=== PATIENT | male | born 1975 | race Caucasian/White ===

== ENCOUNTER 2023-06-13 13:37 | Emergency (ER) | payer OTHER, SELFPAY ==
[2023-06-13 13:44] VITALS: BP 140/96; PULSE 73; RESP 16; TEMP 36.8; O2SAT 95; BMI 42.0
--- NOTE | 2023-06-13 13:45 | ED.ABDPAIN1 ---
HPI - Abdominal Pain General Chief Complaint: Abdominal Pain Stated Complaint: ABDOMINAL PAIN Time Seen by Provider: 06/13/23 13:44 History of Present Illness HPI narrative: this patient's here for evaluation of abdominal pain. In fact at this time he does not have any abdominal discomfort but he did the day before yesterday in the morning. After waking up with the severe pain he went and saw his primary care doctor subsequently had a gallbladder ultrasound. Currently he received a phone call from the facility indicating that he should go to the emergency room for further evaluation. At no time has he had a fever. He is not vomiting today. And actually is a said his pain is gone. He is afebrile here. He has not had previous surgery or problems with his gallbladder that he is aware of. The pain is not in the lower abdominal area. Is not on any antibiotics. Related Data Allergies Allergy/AdvReac Type Severity Reaction Status Date / Time No Known Drug Allergies Allergy Verified 06/13/23 13:47 PFSH PFSH Social History Smoking status: Former smoker Exam Narrative Exam Narrative: on examination is a pleasant well-hydrated well-nourished gentleman he does weigh 140 kg. Overall he does not appear ill. He actually denies any discomfort at this time His vital signs are stable and he is afebrile. He is not on any antibiotics or fever reducing medication. Problem focused examination shows no evidence of scleral icterus or anemia. His abdominal area shows no rebound rigidity or peritoneal findings. He has no tenderness at McBurney's point and actually at this time or for sign is not positive. Skin integument are otherwise normal with no leg edema. Heart rate and rhythm are normal. Constitutional Vital Signs, click to edit/add: Last Vital Signs Temp 98.2 F 06/13/23 13:44 Pulse 73 06/13/23 13:44 Resp 16 06/13/23 13:44 BP 140/96 H 06/13/23 13:44 Pulse Ox 95 06/13/23 13:44 O2 Del Method Room Air 06/13/23 13:44 Course Vital Signs Vital signs: Vital Signs Temperature 98.2 F 06/13/23 13:44 Pulse Rate 73 06/13/23 13:44 Respiratory Rate 16 06/13/23 13:44 Blood Pressure 140/96 H 06/13/23 13:44 Pulse Oximetry 95 06/13/23 13:44 Oxygen Delivery Method Room Air 06/13/23 13:44 Temperature 98.2 F 06/13/23 13:44 Pulse Rate 73 06/13/23 13:44 Respiratory Rate 16 06/13/23 13:44 Blood Pressure 140/96 H 06/13/23 13:44 Pulse Oximetry 95 06/13/23 13:44 Oxygen Delivery Method Room Air 06/13/23 13:44 MDM - Abdominal Pain MDM Narrative Medical decision making narrative: we did receive the ultrasound from the other facility and it was consistent with acute cholecystitis. The common bile duct was not visualized there was gallbladder wall thickening measuring [address] scan is consistent with calculus cholecystitis. His total bilirubin was normal, his white blood cell count normal. Liver function tests normal as well. The primary care physician senior process control tech will admit the patient but he would like me to discuss this with the on-call surgeon as well. Lab Data Labs: Lab Results 06/13/23 Range/Units 14:00 WBC 6.9 (4.0-11.0) 10^3/uL RBC 5.06 (4.70-6.10) 10^6/uL Hgb 14.1 (14.0-18.0) g/dL Hct 43.8 (42.0-54.0) % MCV 86.6 (80.0-94.0) fL MCH 27.9 (25.9-34.0) pg MCHC 32.2 (29.9-35.2) g/dL RDW 13.5 (11.0-15.0) % Plt Count 262 (150-450) 10^3/uL MPV 9.3 L (9.5-13.5) fL Neut % (Auto) 68.4 (43.0-75.0) % Lymph % (Auto) 22.9 (20.5-60.0) % Bill[place] % (Auto) 6.5 (1.7-12.0) % Eos % (Auto) 1.5 (0.9-7.0) % Baso % (Auto) 0.6 (0.2-2.0) % Neut # (Auto) 4.7 (1.4-6.5) 10^3/uL Lymph # (Auto) 1.6 (1.2-3.8) 10^3/uL Bill[place] # (Auto) 0.5 (0.3-0.8) 10^3/uL Eos # (Auto) 0.1 (0.0-0.7) 10^3/uL Baso # (Auto) 0.0 (0.0-0.1) 10^3/uL Abs Immat Gran (auto) 0.01 (0.00-0.03) 10^3/uL Imm/Tot Granulo (auto) 0.1 (0.0-0.5) % Sodium 134 L (136-145) mmol/L Potassium 3.6 (3.5-5.1) mmol/L Chloride 101 (98-107) mmol/L Carbon Dioxide 27.4 (21.0-32.0) mmol/L Anion Gap 9.2 BUN 10.0 (7.0-18.0) mg/dL Creatinine 0.92 (0.70-1.30) mg/dL Est GFR ( Amer) >60 (>=60) Est GFR (Non-Af Amer) >60 (>=60) BUN/Creatinine Ratio 10.9 Glucose 248 H (74-106) mg/dL Lactate 1.8 (0.4-2.0) mmol/L Calcium 8.9 (8.5-10.1) mg/dL Total Bilirubin 0.5 (0.2-1.0) mg/dL AST 21 (15-37) U/L ALT 35 (16-63) U/L Alkaline Phosphatase 98 (46-116) U/L Total Protein 7.6 (6.4-8.2) g/dL Albumin 3.3 L (3.4-5.0) g/dL Globulin 4.3 g/dL Albumin/Globulin Ratio 0.8 Lipase 29.0 (16.0-77.0) U/L Discharge Plan Discharge Chief Complaint: Abdominal Pain Clinical Impression: Acute cholecystitis Patient Disposition: Admitted as Observation Time of Disposition Decision: 14:49 Referrals: JOSEPHINE GARCIA [Primary Care Provider] - 1 week
--- NOTE | 2023-06-13 13:53 | CT_ITS ---
The [address] [address] Patient Name: TIFFANY RUSH MRN: [id number] date: 1975 Sex: M Assigned Patient Location: ER Current Patient Location: Accession/Order Number: [id number] Exam Date: 06/13/2023 14:07 Report Date: 06/13/2023 14:36 At the request of: MINESH DE LOS SANTOS Procedure: CT abdomen pelvis w con EXAM: CT scan of the abdomen and pelvis using 98 mL of IV iodinated contrast. Dose reduction technique used: Automated exposure control and/or adjustment of the mA and/or kV according to patient size and/or use of iterative reconstruction technique. REASON FOR EXAM: right upper quadrant pain COMPARISON: CT scan dated 04/07/2020 FINDINGS: Cholelithiasis. Prominent fat stranding surrounding the gallbladder. Nondilated gallbladder. Rim of hyperenhancement in the liver along the gallbladder fossa. No pericholecystic fluid collections. Diffuse hepatic steatosis. Prior anterior abdominal wall postoperative changes. Normal appendix. No free fluid in the abdomen or pelvis. No free intraperitoneal air. No dilated or thickened loops of small bowel or colon. No hydronephrosis or obstructing renal or ureteral calculi. Liver, pancreas, spleen, bilateral kidneys, and bilateral adrenal glands are otherwise unremarkable. No lymphadenopathy in the abdomen or pelvis. Remainder unremarkable. CT/CT abdomen pelvis w con IMPRESSION: 1. Findings concerning for acute calculus cholecystitis. 2. Diffuse hepatic steatosis. Electronically authenticated by: LUISA YANG Date: 06/13/2023 14:36
[2023-06-13] MEDS: 0.9 % SODIUM CHLORIDE 1,000 ML 999 ML IV (14:01)
[2023-06-13 14:19] LABS: Basophils Percent Auto 0.6 % (0.2-2.0); Eosinophils Absolute Auto 0.1 10^3/uL (0.0-0.7); Eosinophils Percent Auto 1.5 % (0.9-7.0); Hematocrit 43.8 % (42.0-54.0); Hemoglobin 14.1 g/dL (14.0-18.0); Immature Granulocytes Abs Auto 0.01 10^3/uL (0.00-0.03); Immature Granulocytes Pct Auto 0.1 % (0.0-0.5); Lymphocytes Absolute Auto 1.6 10^3/uL (1.2-3.8); Lymphocytes Percent Auto 22.9 % (20.5-60.0); Mean Corpuscular HGB Conc 32.2 g/dL (29.9-35.2); Mean Corpuscular Hemoglobin 27.9 pg (25.9-34.0); Mean Corpuscular Volume 86.6 fL (80.0-94.0); Mean Platelet Volume 9.3 fL (9.5-13.5); Monocytes Absolute Auto 0.5 10^3/uL (0.3-0.8); Monocytes Percent Auto 6.5 % (1.7-12.0); Neutrophils Absolute Auto 4.7 10^3/uL (1.4-6.5); Neutrophils Percent Auto 68.4 % (43.0-75.0); Platelet Count 262 10^3/uL (150-450); Red Blood Count 5.06 10^6/uL (4.70-6.10); Red Cell Distribution Width 13.5 % (11.0-15.0); White Blood Count 6.9 10^3/uL (4.0-11.0)
[2023-06-13 14:33] LABS: Lactate/Lactic Acid 1.8 mmol/L (0.4-2.0)
[2023-06-13 14:39] LABS: Alanine Aminotransferase 35 U/L (16-63); Albumin Globulin Ratio 0.8; Albumin Level 3.3 g/dL (3.4-5.0); Alkaline Phosphatase 98 U/L (46-116); Anion Gap 9.2; Aspartate Amino Transferase 21 U/L (15-37); BUN Creatinine Ratio 10.9; Bilirubin Total 0.5 mg/dL (0.2-1.0); Calcium 8.9 mg/dL (8.5-10.1); Carbon Dioxide 27.4 mmol/L (21.0-32.0); Chloride 101 mmol/L (98-107); Estimated GFR (African America >60 (>=60); Estimated GFR (Non-African Ame >60 (>=60); Globulin 4.3 g/dL; Glucose 248 mg/dL (74-106); Potassium 3.6 mmol/L (3.5-5.1); Sodium 134 mmol/L (136-145); Total Protein 7.6 g/dL (6.4-8.2)
== END 2023-06-13 15:37 | disposition home or self-care (01) ==
PROVIDERS: Emergency Provider Emergency Medicine Emergency Medical Services; PCP Family Medicine
DX: K82.9 Disease of gallbladder, unspecified (principal); Z87.891 Personal history of nicotine dependence
CPT/HCPCS: 36415; 74177; 80053; 83605; 83690; 85025; 99285; Q9967

== ENCOUNTER 2023-10-17 10:18 | Outpatient (OUT) | payer OTHER, SELFPAY ==
--- OUTSIDE RECORDS SUMMARY | 2023-10-17 10:36 | XMS_ITS | CCD ---
Author Organization [facility] Care Team Providers Care Occupational Therapy Supervisor Name Role Phone TIEN BHAT Attending MINESH Dominguez Referring Unavailable NORBERTO GARCIA Primary Care Unavailable TIEN BHAT Admitting Unavailable HOME, TIEN Surgeon Unavailable [place] Procedure Practitioner Unavailab TIEN Teague Admitting Unavailable TIEN BHAT Attending Unavailable RAD MERRITT Referring Unavailable NORBERTO GARCIA Primary Care Unavailable BHAT, TIEN Surgeon Unavailable [place] Procedure Practitioner Unavailab le MAGALI, DR MINESH Moy Attending Unavailabl e MAGALI, DR MINESH Moy Consulting Unavailabl e MAGALI, DR MINESH Moy Admitting Unavailabl e RADHA, DR BURTON Primary Care Unavailable MAGALI, DR MINESH Moy Admitting Unavailabl e REINECK, DR MINESH Moy Attending Unavailabl e REINGEORGIE, DR MINESH Moy Consulting Unavailabl e RADHA, DR BURTON Primary Care Unavailable VAISHALI, DR GORAN Hernández Consulting Unavailable LUIS M, DR PENALOZA Admitting Unavailable RADHA, DR BURTON Primary Care Unavailable LUIS M, DR PENALOZA Attending Unavailable LUIS M, DR PENALOZA Consulting Unavailable LUISA FRITZ Attending Unavailable NORBERTO GARCIA Referring Unavailable CATRINA, LUISA Patel Referring Unavailable LUISA FRITZ Attending Unavailable NORBERTO GARCIA Referring Unavailable Problems Active Problems Problem Classification Problem Date Documented Da te Episodic/Chronic Essential hypertension (1 source) Essential (primary) hypertension; Translations: [ESSENTIAL PRIMARY HYPERTENSION] Onset: 06-29-2020 Chronic Viral infection (1 source) COVID-19; Translations: [COVID-19] Onset: 06-29-2020 Past or Other Problems Problem Classification Problem Date Documented Da te Episodic/Chronic Abdominal pain (3 sources) Right lower quadrant pain; Translations: [RIGHT LOWER QUADRANT PAIN] Onset: 04-07-2020 Episodic Conditions associated with dizziness or vertigo (4 sources) Dizziness and giddiness; Translations: [DIZZINESS AND GIDDINESS] Onset: 01-28-2020 Episodic Intestinal obstruction without hernia (1 source) Unspecified intestinal obstruction, unspecified as to partial versus complete obstruction; Translations: [UNS INTEST OBS UNS PART VS CMPL OBS] Onset: 04-09-2020 Episodic Other aftercare (1 source) Other intermediate designer (current) drug therapy; Translations: [OTH ALF CURRENT DRUG THERAPY] Onset: 06-29-2020 Episodic Other lower respiratory disease (3 sources) Cough; Translations: [COUGH] Onset: 06-26-2020 Episodic Other upper respiratory infections (1 source) Acute upper respiratory infection, unspecified; Translations: [ACUTE UP RESPIRATORY INFECTION UNS] Onset: 06-29-2020 Episodic Results Test Name Value Interpretation Reference Range Facility US ABDOMEN COMPLETEon 2023 US ABDOMEN COMPLETE EXAMINATION: US ABDOMEN COMPLETE HISTORY: Generalized abdominal pain; N/V; Bloating COMPARISON: CT abdomen pelvis April 07, 2020 TECHNIQUE: Ultrasound evaluation was performed of the right upper quadrant of the abdomen FINDINGS: Increased echogenicity of the liver. Normal contour of the liver. No solid liver lesion or intrahepatic biliary dilatation identified. A cyst of the left lobe measures 5 x 6 x 5 mm. Liver length measured at approximately 19.7 cm. Gallstones are present within the gallbladder. There is gallbladder wall thickening with the wall thickness measuring approximately 11 mm. There is pericholecystic fluid. Common bile duct is not visualized. No overt abnormality of the pancreas. The spleen is at the upper limits of normal measuring approximately 13.2 x 8.9 x 5.4 cm. The right kidney measures 12.3 cm in length and the left kidney measures 12.5 cm in length. Cortical medullary differentiation is maintained. No shadowing calculi or hydronephrosis. Normal appearance of the aorta. Appendix is not visualized. IMPRESSION: Acute cholecystitis. Luisa Frizt PA-C office notified of this finding by Dr. Nguyen at approximately 12:45 p.m. on 06/13/2023. ELECTRONICALLY SIGNED BY: Beau Nguyen, DO Normal Not Available Comment on above: Order Comment: Pleas e visualize pancreas, liver, gallbladder, spleen, and appendix. Thank you. Covid-19 PCR (CVDTBH)on 06-05 EUA Statement SEE BELOW Normal [facility] Comment on above: Result Comment: This test is not yet approved or cleared by the [place] FDA. When there are no FDA-approved or cleared tests available, and other criteria are met, FDA can make tests available under an emergency access mechanism called an Emergency Use Authorization (EUA). The EUA for this test is supported by the [place] of Health and Human Service?s (HHS?s) declaration that circumstances exist to justify the emergency use of in vitro diagnostics for the detection and/or diagnosis of the virus that causes COVID-19. This EUA will remain in effect (meaning this test can be used) for the duration of the COVID-19 declaration justifying emergency of IVDs, unless it is terminated or revoked by FDA (after which the test may no longer be used). When diagnostic testing is negative, the possibility of a false negative should be considered in the context of a patients recent exposures and the presence of clinical signs and symptoms consistent with SARS-CoV-2. Performed By: #### C VDTB #### [facility] [address] [place] [address] Trevor Blair SARS-CoV-2 (COVID-19) RNA YANIRA+probe Ql (Unsp spec) Detected Abnormal NOT DETECTED [facility] Comment on above: Result Comment: This test is not yet approved or cleared by the [place] FDA. When there are no FDA-approved or cleared tests available, and other criteria are met, FDA can make tests available under an emergency access mechanism called an Emergency Use Authorization (EUA). The EUA for this test is supported by the [place] of Health and Human Service's (HHS's) declaration that circumstances exist to justify the emergency use of in vitro diagnostics for the detection and/or diagnosis of the virus that causes COVID-19. This EUA will remain in effect (meaning this test can be used) for the duration of the COVID-19 declaration justifying emergency of IVDs, unless it is terminated or revoked by FDA (after which the test may no longer be used). Performed By: #### C VDTB #### [facility] [address] [place] [address] Trevor Rossy BASIC METABOLIC PANELon 11-0 -2020 Calcium [Mass/Vol] 8.6 mg/dL Normal 8.6-10.3 [facility] Comment on above: Order Comment: No: D o not add to previous draw Performed By: #### 0 0071, 98799, 75568 #### [facility] [address] [place] [address], [place] Chloride [Moles/Vol] 100 mmol/L Normal 98-107 [facility] Comment on above: Order Comment: No: D o not add to previous draw Performed By: #### 0 0071, 28696, 82031 #### [facility] [address] [place] [address], [place] CO2 [Moles/Vol] 29 mmol/L Normal 21-31 [facility] Comment on above: Order Comment: No: D o not add to previous draw Performed By: #### 0 0071, 92933, 49441 #### [facility] [address] [place] [address], [place] Creatinine [Mass/Vol] 0.68 mg/dL Low 0.70-1.30 [facility] Comment on above: Order Comment: No: D o not add to previous draw Performed By: #### 0 0071, 62428, 42182 #### [facility] [address] [place] [address], [place] GFR/1.73 sq M predicted among blacks MDRD (S/P/Bld) [Vol rate/Area] mL/min/{1.73_m2} Normal >60 [facility] Comment on above: Order Comment: No: D o not add to previous draw Performed By: #### 0 0071, 20357, 29293 #### [facility] [address] [place] [address], [place] GFR/1.73 sq M predicted among non-blacks MDRD (S/P/Bld) [Vol rate/Area] mL/min/{1.73_m2} Normal >60 [facility] Comment on above: Order Comment: No: D o not add to previous draw Performed By: #### 0 0071, 68897, 77873 #### [facility] [address] [place] [address], [place] Glucose [Mass/Vol] 112 mg/dL High 70-100 [facility] Comment on above: Order Comment: No: D o not add to previous draw Performed By: #### 0 0071, 53419, 78356 #### [facility] [address] [place] [address], [place] Potassium [Moles/Vol] 3.5 mmol/L Normal 3.5-5.1 [facility] Comment on above: Order Comment: No: D o not add to previous draw Performed By: #### 0 0071, 13505, 23068 #### [facility] [address] [place] [address], [place] Sodium [Moles/Vol] 136 mmol/L Normal 136-145 [facility] Comment on above: Order Comment: No: D o not add to previous draw Performed By: #### 0 0071, 22891, 81209 #### [facility] [address] [place] [address], [place] Urea nitrogen [Mass/Vol] 8 mg/dL Normal 7-25 [facility] Comment on above: Order Comment: No: D o not add to previous draw Performed By: #### 0 0071, 41336, 57851 #### [facility] [address] [place] [address], [facility] CBC COMPLETE BLOOD COUNTon 06-12-2019 Erythrocyte distribution width (RBC) [Ratio] 13.2 % Normal 11.5-15.0 [facility] Comment on above: Order Comment: No: D o not add to previous draw Performed By: #### 0 0071, 22050, 73831 #### [facility] [address] [place] [address], [place] Hematocrit (Bld) [Volume fraction] 37.5 % Low 39.0-50.0 [facility] Comment on above: Order Comment: No: D o not add to previous draw Performed By: #### 0 0071, 14153, 19063 #### [facility] [address] [place] [address], [facility] Hemoglobin (Bld) [Mass/Vol] 12.2 g/dL Low 13.0-17.0 [facility] Comment on above: Order Comment: No: D o not add to previous draw Performed By: #### 0 0071, , 78746 #### [facility] [address] [place] [address], [facility] MCH (RBC) [Entitic mass] 27.7 pg Normal 27.0-33.0 [facility] Comment on above: Order Comment: No: D o not add to previous draw Performed By: #### 0 0071, , 10248 #### [facility] [address] MCHC (RBC) [Mass/Vol] 32.5 g/dL Normal 32.0-35.0 [facility] Comment on above: Order Comment: No: D o not add to previous draw Performed By: #### 0 0071, , 99653 #### [facility] [address] [place] [address], [facility] MCV (RBC) [Entitic vol] 85.2 fL Normal 82.0-98.0 [facility] Comment on above: Order Comment: No: D o not add to previous draw Performed By: #### 0 0071, , 55279 #### [facility] [address] [place] [address], [facility] Nucleated RBC/100 WBC (Bld) [Ratio] 0 % Normal 0-0 [facility] Comment on above: Order Comment: No: D o not add to previous draw Performed By: #### 0 0071, , 33929 #### [facility] [address] [place] [address], [facility] PLAT CNT 232 10*3/uL Normal 150-400 [facility] Comment on above: Order Comment: No: D o not add to previous draw Performed By: #### 0 0071, 24390, 23462 #### [facility] [address] [place] [address], [facility] RBC (Bld) [#/Vol] 4.40 10*6/uL Normal 4.20-5.70 [facility] Comment on above: Order Comment: No: D o not add to previous draw Performed By: #### 0 0071, 47143, 08062 #### [facility] [address] [place] [address], [facility] WBC (Bld) [#/Vol] 7.01 10*3/uL Normal 4.00-10.60 [facility] Comment on above: Order Comment: No: D o not add to previous draw Performed By: #### 0 0071, 57633, 91776 #### [facility] [address] [place] [address], [facility] MAGNESIUM BLOODon 04-12-2020 Magnesium [Mass/Vol] 2.0 mg/dL Normal 1.9-2.7 [facility] Comment on above: Order Comment: No: D o not add to previous draw Performed By: #### 0 0071, 52055, 27623 #### [facility] [address] [place] [address], [facility] BASIC METABOLIC PANELon - Calcium [Mass/Vol] 7.9 mg/dL Low 8.6-10.3 [facility] Comment on above: Order Comment: No: D o not add to previous draw Performed By: #### 0 0071, 52459, 06715 #### [facility] [address] [place] [address], [facility] Chloride [Moles/Vol] 102 mmol/L Normal 98-107 [facility] Comment on above: Order Comment: No: D o not add to previous draw Performed By: #### 0 0071, 71608, 16162 #### [facility] [address] [place] [address], [place] CO2 [Moles/Vol] 26 mmol/L Normal 21-31 [facility] Comment on above: Order Comment: No: D o not add to previous draw Performed By: #### 0 0071, 00910, 43907 #### [facility] [address] [place] [address], [place] Creatinine [Mass/Vol] 0.65 mg/dL Low 0.70-1.30 [facility] Comment on above: Order Comment: No: D o not add to previous draw Performed By: #### 0 0071, 51846, 16715 #### [facility] [address] [place] [address], [facility] GFR/1.73 sq M predicted among blacks MDRD (S/P/Bld) [Vol rate/Area] mL/min/{1.73_m2} Normal >60 [facility] Comment on above: Order Comment: No: D o not add to previous draw Performed By: #### 0 0071, 15751, 96081 #### [facility] [address] [place] [address], [place] GFR/1.73 sq M predicted among non-blacks MDRD (S/P/Bld) [Vol rate/Area] mL/min/{1.73_m2} Normal >60 [facility] Comment on above: Order Comment: No: D o not add to previous draw Performed By: #### 0 0071, 22227, 49769 #### [facility] [address] [place] [address], [place] Glucose [Mass/Vol] 94 mg/dL Normal 70-100 [facility] Comment on above: Order Comment: No: D o not add to previous draw Performed By: #### 0 0071, 04919, 65653 #### [facility] [address] [place] [address], [facility] Potassium [Moles/Vol] 3.7 mmol/L Normal 3.5-5.1 [facility] Comment on above: Order Comment: No: D o not add to previous draw Performed By: #### 0 0071, 53456, 08082 #### [facility] [address] [place] [address], [place] Sodium [Moles/Vol] 136 mmol/L Normal 136-145 [facility] Comment on above: Order Comment: No: D o not add to previous draw Performed By: #### 0 0071, 16892, 79023 #### [facility] [address] [place] [address], [facility] Urea nitrogen [Mass/Vol] 8 mg/dL Normal 7-25 [facility] Comment on above: Order Comment: No: D o not add to previous draw Performed By: #### 0 0071, 38141, 52399 #### [facility] [address] [place] [address], [facility] CBC COMPLETE BLOOD COUNTon 06-11-2019 Erythrocyte distribution width (RBC) [Ratio] 13.4 % Normal 11.5-15.0 [facility] Comment on above: Order Comment: No: D o not add to previous draw Performed By: #### 0 0071, 84004, 68799 #### [facility] [address] [place] [address], [facility] Hematocrit (Bld) [Volume fraction] 37.1 % Low 39.0-50.0 [facility] Comment on above: Order Comment: No: D o not add to previous draw Performed By: #### 0 0071, 81434, 34721 #### [facility] [address] [place] [address], [facility] Hemoglobin (Bld) [Mass/Vol] 12.4 g/dL Low 13.0-17.0 [facility] Comment on above: Order Comment: No: D o not add to previous draw Performed By: #### 0 0071, 29737, 62047 #### [facility] [address] [place] [address], [facility] MCH (RBC) [Entitic mass] 28.5 pg Normal 27.0-33.0 [facility] Comment on above: Order Comment: No: D o not add to previous draw Performed By: #### 0 0071, 30020, 48304 #### [facility] [address] [place] [address], [facility] MCHC (RBC) [Mass/Vol] 33.4 g/dL Normal 32.0-35.0 [facility] Comment on above: Order Comment: No: D o not add to previous draw Performed By: #### 0 0071, , 29689 #### [facility] [address] [place] [address], [facility] MCV (RBC) [Entitic vol] 85.3 fL Normal 82.0-98.0 [facility] Comment on above: Order Comment: No: D o not add to previous draw Performed By: #### 0 0071, , 80047 #### [facility] [address] [facility] [place] [address], [facility] Nucleated RBC/100 WBC (Bld) [Ratio] 0 % Normal 0-0 [facility] Comment on above: Order Comment: No: D o not add to previous draw Performed By: #### 0 0071, , 35002 #### [facility] [address] [place] [address], [facility] PLAT CNT 223 10*3/uL Normal 150-400 [facility] Comment on above: Order Comment: No: D o not add to previous draw Performed By: #### 0 0071, 26304, 20027 #### [facility] [address] [place] [address], [facility] RBC (Bld) [#/Vol] 4.35 10*6/uL Normal 4.20-5.70 [facility] Comment on above: Order Comment: No: D o not add to previous draw Performed By: #### 0 0071, 64060, 90205 #### [facility] [address] WBC (Bld) [#/Vol] 8.64 10*3/uL Normal 4.00-10.60 [facility] Comment on above: Order Comment: No: D o not add to previous draw Performed By: #### 0 0071, 04544, 84904 #### [facility] [address] MAGNESIUM BLOODon 04-11-2020 Magnesium [Mass/Vol] 1.9 mg/dL Normal 1.9-2.7 [facility] Comment on above: Order Comment: No: D o not add to previous draw Performed By: #### 0 0071, 15533, 66130 #### [facility] [address] Operative Reporton 0 Operative Report MR#: [id number] I [facility] Pt. Name: Tiffany Rush Room #: 4AB [id number] Discharge Date: Birthdate: 1975 OPERATIVE REPORT DATE OF SURGERY: 04/09/2020 SURGEON: Tien Bhat M.D. CLINICAL SCIENCE CONSULTANT: Marsha Mantilla, PGY-4. PREOPERATIVE DIAGNOSIS: Incarcerated recurrent ventral hernia. POSTOPERATIVE DIAGNOSIS: Incarcerated recurrent ventral hernia. OPERATION: Da Ned assisted laparoscopic ventral hernia repair with mesh. ANESTHESIA TYPE: General endotracheal anesthesia. EBL: 10 mL. COMPLICATIONS: None. SPECIMENS: None. IMPLANTS: 20/25 cm Parietex mesh. INDICATIONS: The patient is a 44-year-old male who was admitted a day prior to his procedure with symptoms of obstruction secondary to his bowel incarceration from a ventral hernia. He had a ventral hernia repair multiple times and recently noticed that was increasing in size and developed new onset pain a few days prior. Due to his symptoms, we recommended surgical management of his ventral hernia. Consent was obtained from the patient after reviewing risks and benefits. DESCRIPTION OF PROCEDURE: The patient was brought to the operating room on 04/09/2020, and placed in the supine position. General endotracheal anesthesia was induced. Appropriate preoperative antibiotic was given and EPC cuffs were on and functioning. The abdomen was prepped and draped in the usual sterile fashion. A time-out was performed. We started by making an 8 mm incision in the left upper quadrant, which we used a Visiport into the abdomen using a 0-degree scope. We achieved pneumoperitoneum without complication. We then used this to place 2 additional 8 mm ports in the left lateral abdomen and then placed an additional 12 mm port in the epigastric region. All ports were placed without complication. The robot was then docked and we began dissection of intraabdominal adhesions. There were a few adhesions noted from the omentum and small bowel through to the abdominal wall. These were dissected with a combination of electrocautery and blunt dissection. We noticed that there were several separate defect of the anterior abdominal wall and a previously placed intraperitoneal mesh that was still visible. We were able to reduce all the hernia contents from the separate defect. The largest defect size was approximately 3 cm in diameter. In this 1 large defect, there was a knuckle of bowel that was somewhat edematous and swollen, but was viable without any signs of injury during reduction. We elected to place a 20 x 25 cm Parietex mesh in an intraabdominal preperitoneal fashion. This was sutured into place with 2-0 Vicryl stay sutures at the poles of the mesh, and then secured in place using a V-Fortino suture in a circumferential fashion. We also utilized the Sebas-Nick needle to fixate the mesh in several points along the inner portion of the mesh. The abdomen was checked for hemostasis, which was excellent. We then closed our 12 mm port site using the Sebas-Nick needle and a 0 Vicryl suture. Pneumoperitoneum was then released and the abdomen was desufflated. The skin was closed using 4-0 Vicryl subcuticular stitches. All incisions were then washed and dried and then covered with skin glue. The patient was awoken from anesthesia and then taken to the PACU for further recovery. All instrument and sponge counts were correct x2. There were no immediate postoperative complications. Dr. Bhat was scrubbed and present for the entire procedure. Electronically Signed by: Tien Bhat M.D. 05/06/2020 12:01 A Tien Bhat M.D. I was present for the entire procedure. Date Dict: 04/11/2020/12:34 A/Annalee Larson MD Date Trans: 04/11/2020 01:21 A/dexter [id number] cc: Norberto Garcia M.D. [address] [place]. [address] [facility] [address] Normal The [facility] PHOSPHORUS BLOODon 0 Phosphate [Mass/Vol] 2.6 mg/dL Normal 2.5-5.0 [facility] Comment on above: Order Comment: No: D o not add to previous draw Performed By: #### 0 0071, 57025, 31012 #### [facility] [address] [place] [address], [facility] BASIC METABOLIC PANELon 110 Calcium [Mass/Vol] 8.1 mg/dL Low 8.6-10.3 [facility] Comment on above: Order Comment: No: D o not add to previous draw Performed By: #### 0 0071, 69743, 30967 #### [facility] [address] [facility] [place] [address], [facility] Chloride [Moles/Vol] 105 mmol/L Normal 98-107 [facility] Comment on above: Order Comment: No: D o not add to previous draw Performed By: #### 0 0071, 69896, 92482 #### [facility] [address] [place] [address], [facility] CO2 [Moles/Vol] 27 mmol/L Normal 21-31 [facility] Comment on above: Order Comment: No: D o not add to previous draw Performed By: #### 0 0071, 73335, 26516 #### [facility] [address] [place] [address], [place] Creatinine [Mass/Vol] 0.74 mg/dL Normal 0.70-1.30 [facility] Comment on above: Order Comment: No: D o not add to previous draw Performed By: #### 0 0071, 72657, 07528 #### [facility] [address] [place] [address], [place] GFR/1.73 sq M predicted among blacks MDRD (S/P/Bld) [Vol rate/Area] mL/min/{1.73_m2} Normal >60 [facility] Comment on above: Order Comment: No: D o not add to previous draw Performed By: #### 0 0071, 25234, 94146 #### [facility] [address] [place] [address], [place] GFR/1.73 sq M predicted among non-blacks MDRD (S/P/Bld) [Vol rate/Area] mL/min/{1.73_m2} Normal >60 [facility] Comment on above: Order Comment: No: D o not add to previous draw Performed By: #### 0 0071, 69867, 36182 #### [facility] [address] [place] [address], [place] Glucose [Mass/Vol] 97 mg/dL Normal 70-100 [facility] Comment on above: Order Comment: No: D o not add to previous draw Performed By: #### 0 0071, 41879, 81223 #### [facility] [address] [place] [address], [place] Potassium [Moles/Vol] 3.6 mmol/L Normal 3.5-5.1 [facility] Comment on above: Order Comment: No: D o not add to previous draw Performed By: #### 0 0071, 11121, 54658 #### [facility] [address] [place] [address], [place] Sodium [Moles/Vol] 138 mmol/L Normal 136-145 [facility] Comment on above: Order Comment: No: D o not add to previous draw Performed By: #### 0 0071, 15117, 25060 #### [facility] [address] [place] [address], [facility] Urea nitrogen [Mass/Vol] 11 mg/dL Normal 7-25 [facility] Comment on above: Order Comment: No: D o not add to previous draw Performed By: #### 0 0071, 75184, 35601 #### [facility] [address] [place] [address], [facility] CBC COMPLETE BLOOD COUNTon 06-10-2019 Erythrocyte distribution width (RBC) [Ratio] 13.5 % Normal 11.5-15.0 [facility] Comment on above: Order Comment: No: D o not add to previous draw Performed By: #### 0 0071, , 84874 #### [facility] [address] [place] [address], [facility] Hematocrit (Bld) [Volume fraction] 37.8 % Low 39.0-50.0 [facility] Comment on above: Order Comment: No: D o not add to previous draw Performed By: #### 0 0071, 06107, 48731 #### [facility] [address] [place] [address], [facility] Hemoglobin (Bld) [Mass/Vol] 12.1 g/dL Low 13.0-17.0 [facility] Comment on above: Order Comment: No: D o not add to previous draw Performed By: #### 0 0071, 67968, 73317 #### [facility] [address] [place] [address], [facility] MCH (RBC) [Entitic mass] 28.0 pg Normal 27.0-33.0 [facility] Comment on above: Order Comment: No: D o not add to previous draw Performed By: #### 0 0071, 06470, 00884 #### [facility] [address] [place] [address], [facility] MCHC (RBC) [Mass/Vol] 32.0 g/dL Normal 32.0-35.0 [facility] Comment on above: Order Comment: No: D o not add to previous draw Performed By: #### 0 0071, 37054, 42862 #### [facility] [address] [place] [address], [facility] MCV (RBC) [Entitic vol] 87.5 fL Normal 82.0-98.0 [facility] Comment on above: Order Comment: No: D o not add to previous draw Performed By: #### 0 0071, 64910, 08587 #### [facility] [address] [place] [address], [facility] Nucleated RBC/100 WBC (Bld) [Ratio] 0 % Normal 0-0 [facility] Comment on above: Order Comment: No: D o not add to previous draw Performed By: #### 0 0071, 34263, 02543 #### [facility] [address] [place] [address], [facility] PLAT CNT 233 10*3/uL Normal 150-400 [facility] Comment on above: Order Comment: No: D o not add to previous draw Performed By: #### 0 0071, 84001, 21992 #### [facility] [address] [place] [id number], [facility] RBC (Bld) [#/Vol] 4.32 10*6/uL Normal 4.20-5.70 [facility] Comment on above: Order Comment: No: D o not add to previous draw Performed By: #### 0 0071, 19197, 13402 #### [facility] [address] [place] [address], [place] WBC (Bld) [#/Vol] 10.37 10*3/uL Normal 4.00-10.60 [facility] Comment on above: Order Comment: No: D o not add to previous draw Performed By: #### 0 0071, 16460, 32617 #### [facility] [address] [place] [address], [facility] MAGNESIUM BLOODon 04-10-2020 Magnesium [Mass/Vol] 2.0 mg/dL Normal 1.9-2.7 [facility] Comment on above: Order Comment: No: D o not add to previous draw Performed By: #### 0 0071, 92177, 12278 #### [facility] [address] [place] [address], [facility] PHOSPHORUS BLOODon 0 Phosphate [Mass/Vol] 2.4 mg/dL Low 2.5-5.0 [facility] Comment on above: Order Comment: No: D o not add to previous draw Performed By: #### 0 0071, 64800, 17636 #### [facility] [address] *MRSA/MSSA CULTUREon 020 *MRSA/MSSA CULTURE Clinical Report: (D) Specimen: NASAL SWAB Collected: 04/09/2020 10:13 Status: Final Last Updated: 04/10/2020 07:37 ISO (Final) No Methicillin Resistant Staphylococcus aureus Isolated (MRSA) ISO (Final) No Methicillin Sensitive Staphylococcus aureus Isolated (MSSA) Normal [facility] Comment on above: Performed By: #### 0 0071, 33914, 73476 #### [facility] [address] [place] [address], [facility] BASIC METABOLIC PANELon Calcium [Mass/Vol] 8.2 mg/dL Low 8.6-10.3 [facility] Comment on above: Order Comment: No: D o not add to previous draw Performed By: #### 0 0071 #### [facility] [address] [place] [address], [facility] Chloride [Moles/Vol] 105 mmol/L Normal 98-107 [facility] Comment on above: Order Comment: No: D o not add to previous draw Performed By: #### 0 0071 #### [facility] [address] [place] [address], [place] CO2 [Moles/Vol] 23 mmol/L Normal 21-31 [facility] Comment on above: Order Comment: No: D o not add to previous draw Performed By: #### 0 0071 #### [facility] [address] [place] [address], [facility] Creatinine [Mass/Vol] 0.72 mg/dL Normal 0.70-1.30 [facility] Comment on above: Order Comment: No: D o not add to previous draw Performed By: #### 0 0071 #### [facility] [address] [place] [address], [place] GFR/1.73 sq M predicted among blacks MDRD (S/P/Bld) [Vol rate/Area] mL/min/{1.73_m2} Normal >60 [facility] Comment on above: Order Comment: No: D o not add to previous draw Performed By: #### 0 0071 #### [facility] [address] [place] [address], [place] GFR/1.73 sq M predicted among non-blacks MDRD (S/P/Bld) [Vol rate/Area] mL/min/{1.73_m2} Normal >60 [facility] Comment on above: Order Comment: No: D o not add to previous draw Performed By: #### 0 0071 #### [facility] [address] [place] [address], [place] Glucose [Mass/Vol] 110 mg/dL High 70-100 [facility] Comment on above: Order Comment: No: D o not add to previous draw Performed By: #### 0 0071 #### [facility] [address] [place] [address], [facility] Potassium [Moles/Vol] 4.1 mmol/L Normal 3.5-5.1 [facility] Comment on above: Order Comment: No: D o not add to previous draw Performed By: #### 0 0071 #### [facility] [address] [place] [address], [facility] Sodium [Moles/Vol] 137 mmol/L Normal 136-145 [facility] Comment on above: Order Comment: No: D o not add to previous draw Performed By: #### 0 0071 #### [facility] [address] [place] [address], [facility] Urea nitrogen [Mass/Vol] 13 mg/dL Normal 7-25 [facility] Comment on above: Order Comment: No: D o not add to previous draw Performed By: #### 0 0071 #### [facility] [address] [place] [address], [facility] CBC COMPLETE BLOOD COUNTon 06-09-2019 Erythrocyte distribution width (RBC) [Ratio] 13.6 % Normal 11.5-15.0 [facility] Comment on above: Order Comment: No: D o not add to previous draw Performed By: #### 0 0071, , 13364 #### [facility] [address] [place] [id number], [facility] Hematocrit (Bld) [Volume fraction] 39.6 % Normal 39.0-50.0 [facility] Comment on above: Order Comment: No: D o not add to previous draw Performed By: #### 0 0071, , 45827 #### [facility] [address] [place] [id number], [facility] Hemoglobin (Bld) [Mass/Vol] 13.1 g/dL Normal 13.0-17.0 [facility] Comment on above: Order Comment: No: D o not add to previous draw Performed By: #### 0 0071, , 84392 #### [facility] [address] [place] [address], [facility] MCH (RBC) [Entitic mass] 28.3 pg Normal 27.0-33.0 [facility] Comment on above: Order Comment: No: D o not add to previous draw Performed By: #### 0 0071, 29733, 28896 #### [facility] [address] [place] [address], [facility] MCHC (RBC) [Mass/Vol] 33.1 g/dL Normal 32.0-35.0 [facility] Comment on above: Order Comment: No: D o not add to previous draw Performed By: #### 0 0071, 97608, 45426 #### [facility] [address] [place] [address], [facility] MCV (RBC) [Entitic vol] 85.5 fL Normal 82.0-98.0 [facility] Comment on above: Order Comment: No: D o not add to previous draw Performed By: #### 0 0071, , 82801 #### [facility] [address] [address], [facility] Nucleated RBC/100 WBC (Bld) [Ratio] 0 % Normal 0-0 [facility] Comment on above: Order Comment: No: D o not add to previous draw Performed By: #### 0 0071, 74624, 64892 #### [facility] [address] [facility] [place] [address], [facility] PLAT CNT 240 10*3/uL Normal 150-400 [facility] Comment on above: Order Comment: No: D o not add to previous draw Performed By: #### 0 0071, 00137, 98483 #### [facility] [address] [place] [address], [facility] RBC (Bld) [#/Vol] 4.63 10*6/uL Normal 4.20-5.70 [facility] Comment on above: Order Comment: No: D o not add to previous draw Performed By: #### 0 0071, 38827, 87991 #### [facility] [address] [place] [address], [facility] WBC (Bld) [#/Vol] 7.45 10*3/uL Normal 4.00-10.60 [facility] Comment on above: Order Comment: No: D o not add to previous draw Performed By: #### 0 0071, , 61307 #### [facility] [address] PROTHROMBIN TIMEon 0 INR Coag (PPP) [Relative time] 1.03 {INR} Normal 0.91-1.16 [facility] Comment on above: Order Comment: No: D o not add to previous draw Result Comment: ACCC P RECOMMENDED INR FOR WARFARIN THERAPY ------ ------- CONDITION INR PROPHYLAXIS OF VENOUS THROMBOSIS 2-3 (HIGH-RISK SURGERY) TREATMENT OF VENOUS THROMBOSIS 2-3 TREATMENT OF PULMONARY EMBOLISM 2-3 PREVENTION OF SYSTEMIC EMBOLISM: 2-3 ACUTE MYOCARDIAL INFARCTION TISSUE HEART VALVES VALVULAR HEART DISEASE ATRIAL FIBRILLATION RECURRENT SYSTEMIC EMBOLISM MECHANICAL HEART VALVE 2.5-3.5 FROM: ORAL ANTICOAGULANTS. MECHANISM OF ACTION, CLINICAL EFFECTIVENESS, AND OPTIMAL THERAPEUTIC RANGE. CHEST 1995;108:231S-246S. Performed By: #### 0 0071, 65038, 09950 #### [facility] [address] [place] [address], [facility] PT Coag (PPP) [Time] 13.5 s Normal 12.3-14.8 The [facility] Comment on above: Order Comment: No: D o not add to previous draw Result Comment: ALL RESULTS MUST BE INTERPRETED WITH RESPECT TO BLOOD DRAWING ARTIFACT OR DILUTION ERROR OF ANTICOAGULANT AT THE TIME OF SAMPLING. Performed By: #### 0 0071, 10278, 01476 #### [facility] [address] *SARS-CoV-2 COVID-19on 04-08 [id number] Not Detected Normal Not Detected [facility] Comment on above: Order Comment: The A ptima SARS-CoV-2 assay is a nucleic acid amplification test intended for the qualitative detection of RNA from SARS-CoV-2 isolated and purified from nasopharyngeal (OFFICE SUPPORT ASSOCIATE),oropharyngeal (OP), nasal swab, sputum, and bronchoalveolar lavage (BAL) specimens from patients with signs and symptoms of infection who are suspected of COVID-19. Results are for the identification of SARS-CoV-2 RNA. The SARS-CoV-2 RNA is generally detectable during the acute phase of infection. The Aptima SARS-CoV-2 Assay on the [place] [employer] [place] [employer] system is intended for use by laboratory personnel specifically instructed and trained in the operation of the [place] [employer] [place] [employer] system. The Aptima SARS-CoV-2 assay is only for use under the Food and Drug Administration Emergency Use Authorization. Testing is limited to laboratories certified under the Clinical Laboratory Improvement Amendments of 1988 (CLIA), 42 U.S.C. ???263a, to perform high complexity tests. Not Detected: Not detected does not preclude SARS-CoV-2 infection and should not be used as the sole basis for patient management decisions. Not detected results must be combined with clinical observations, patient history, and epidemiological information. Performed By: #### 3 1792 #### [facility] [address] BASIC METABOLIC PANELon 11-0 Calcium [Mass/Vol] 9.0 mg/dL Normal 8.6-10.3 [facility] Comment on above: Order Comment: No: D o not add to previous draw Performed By: #### 0 0071 #### [facility] [address] [place] [address], [facility] Chloride [Moles/Vol] 102 mmol/L Normal 98-107 [facility] Comment on above: Order Comment: No: D o not add to previous draw Performed By: #### 0 0071 #### [facility] [address] [place] [address], [place] CO2 [Moles/Vol] 28 mmol/L Normal 21-31 [facility] Comment on above: Order Comment: No: D o not add to previous draw Performed By: #### 0 0071 #### [facility] [address] [place] [address], [place] Creatinine [Mass/Vol] 0.75 mg/dL Normal 0.70-1.30 [facility] Comment on above: Order Comment: No: D o not add to previous draw Performed By: #### 0 0071 #### [facility] [address] [place] [address], [place] GFR/1.73 sq M predicted among blacks MDRD (S/P/Bld) [Vol rate/Area] mL/min/{1.73_m2} Normal >60 [facility] Comment on above: Order Comment: No: D o not add to previous draw Performed By: #### 0 0071 #### [facility] [address] [place] [address], [place] GFR/1.73 sq M predicted among non-blacks MDRD (S/P/Bld) [Vol rate/Area] mL/min/{1.73_m2} Normal >60 [facility] Comment on above: Order Comment: No: D o not add to previous draw Performed By: #### 0 0071 #### [facility] [address] [place] [address], [place] Glucose [Mass/Vol] 130 mg/dL High 70-100 [facility] Comment on above: Order Comment: No: D o not add to previous draw Performed By: #### 0 0071 #### [facility] [address] [place] [address], [facility] Potassium [Moles/Vol] 4.0 mmol/L Normal 3.5-5.1 [facility] Comment on above: Order Comment: No: D o not add to previous draw Performed By: #### 0 0071 #### [facility] [address] [place] [id number], [facility] Sodium [Moles/Vol] 139 mmol/L Normal 136-145 [facility] Comment on above: Order Comment: No: D o not add to previous draw Performed By: #### 0 0071 #### [facility] [address] [place] [address], [facility] Urea nitrogen [Mass/Vol] 12 mg/dL Normal 7-25 [facility] Comment on above: Order Comment: No: D o not add to previous draw Performed By: #### 0 0071 #### [facility] [address] [place] [address], [facility] CBC W/DIFFon 04-08-2020 ABS BASOPHILS 0.0 10*3/uL Normal 0.0-0.2 The [facility] Comment on above: Order Comment: No: D o not add to previous draw Performed By: #### 0 0071, 53352, 81963 #### [facility] [address] [place] [address], [facility] ABS IMM GRANS 0.0 10*3/uL Normal 0.0-0.2 [facility] Comment on above: Order Comment: No: D o not add to previous draw Performed By: #### 0 0071, 15751, 39056 #### [facility] [address] [place] [address], [facility] ABS NEUTROPHILS 9.5 10*3/uL High 1.6-7.6 The [facility] Comment on above: Order Comment: No: D o not add to previous draw Performed By: #### 0 0071, 29827, 52104 #### [facility] [address] [place] [address], [facility] Basophils/100 WBC (Bld) 0.2 % Normal 0.0-1.0 [facility] Comment on above: Order Comment: No: D o not add to previous draw Performed By: #### 0 0071, 50264, 20473 #### [facility] [address] [place] [address], [facility] Eosinophils (Bld) [#/Vol] 0.0 10*3/uL Normal 0.0-0.5 [facility] Comment on above: Order Comment: No: D o not add to previous draw Performed By: #### 0 0071, 38510, 28822 #### [facility] [address] [place] [address], [facility] Eosinophils/100 WBC (Bld) 0.1 % Normal 0.0-6.0 [facility] Comment on above: Order Comment: No: D o not add to previous draw Performed By: #### 0 0071, 92942, 69528 #### [facility] [address] [place] [address], [facility] Erythrocyte distribution width (RBC) [Ratio] 13.8 % Normal 11.5-15.0 [facility] Comment on above: Order Comment: No: D o not add to previous draw Performed By: #### 0 0071, 07655, 32770 #### [facility] [address] [place] [address], [place] Hematocrit (Bld) [Volume fraction] 43.4 % Normal 39.0-50.0 [facility] Comment on above: Order Comment: No: D o not add to previous draw Performed By: #### 0 0071, 29626, 43693 #### [facility] [address] [place] [address], [place] Hemoglobin (Bld) [Mass/Vol] 14.0 g/dL Normal 13.0-17.0 [facility] Comment on above: Order Comment: No: D o not add to previous draw Performed By: #### 0 0071, 59592, 94018 #### [facility] [address] [place] [address], [place] IMMATURE GRANS 0.3 % Normal 0.0-1.0 [facility] Comment on above: Order Comment: No: D o not add to previous draw Performed By: #### 0 0071, 49061, 98684 #### [facility] [address] [place] [address], [facility] Lymphocytes (Bld) [#/Vol] 0.8 10*3/uL Low 1.2-4.0 [facility] Comment on above: Order Comment: No: D o not add to previous draw Performed By: #### 0 0071, , 13706 #### [facility] [address] [place] [address], [place] Lymphocytes/100 WBC (Bld) 7.6 % Low 20.0-45.0 [facility] Comment on above: Order Comment: No: D o not add to previous draw Performed By: #### 0 0071, , 47325 #### [facility] [address] [place] [address], [place] MCH (RBC) [Entitic mass] 28.2 pg Normal 27.0-33.0 [facility] Comment on above: Order Comment: No: D o not add to previous draw Performed By: #### 0 0071, 84113, 95841 #### [facility] [address] [place] [address], [place] MCHC (RBC) [Mass/Vol] 32.3 g/dL Normal 32.0-35.0 [facility] Comment on above: Order Comment: No: D o not add to previous draw Performed By: #### 0 0071, 64836, 15824 #### [facility] [address] [place] [address], [facility] MCV (RBC) [Entitic vol] 87.3 fL Normal 82.0-98.0 [facility] Comment on above: Order Comment: No: D o not add to previous draw Performed By: #### 0 0071, 01066, 13038 #### [facility] [address] [place] [address], [facility] Monocytes (Bld) [#/Vol] 0.4 10*3/uL Normal 0.1-1.0 [facility] Comment on above: Order Comment: No: D o not add to previous draw Performed By: #### 0 0071, 99280, 35654 #### [facility] [address] [place] [address], [facility] MONOS 4.0 % Low 5.0-12.0 [facility] Comment on above: Order Comment: No: D o not add to previous draw Performed By: #### 0 0071, 96706, 63718 #### [facility] [address] [place] [address], [facility] Neutrophils/100 WBC (Bld) 87.8 % High 40.0-72.0 [facility] Comment on above: Order Comment: No: D o not add to previous draw Performed By: #### 0 0071, 72066, 95341 #### [facility] [address] [place] [address], [facility] Nucleated RBC/100 WBC (Bld) [Ratio] 0 % Normal 0-0 [facility] Comment on above: Order Comment: No: D o not add to previous draw Performed By: #### 0 0071, 98665, 07560 #### [facility] [address] [place] [address], [facility] PLAT CNT 277 10*3/uL Normal 150-400 [facility] Comment on above: Order Comment: No: D o not add to previous draw Performed By: #### 0 0071, 94078, 84191 #### [facility] [address] [place] [address], [facility] RBC (Bld) [#/Vol] 4.97 10*6/uL Normal 4.20-5.70 [facility] Comment on above: Order Comment: No: D o not add to previous draw Performed By: #### 0 0071, 36379, 18952 #### [facility] [address] [place] [address], [facility] WBC (Bld) [#/Vol] 10.79 10*3/uL High 4.00-10.60 [facility] Comment on above: Order Comment: No: D o not add to previous draw Performed By: #### 0 0071, 07925, 81809 #### [facility] [address] [place] [address], [facility] AMYLASEon 04-07-2020 Amylase [Catalytic activity/Vol] 62 U/L Normal 31-110 [facility] Comment on above: Performed By: #### C MP, LIPA, CARLITOS #### [facility] [address] [place], [place] [id number] Trevor Rossy CBC AUTO DIFFon 04-07-2020 BASO # 0.0 103/ul Normal 0.0-0.1 [facility] Comment on above: Performed By: #### C BC #### [facility] [address] [place], [place] [id number] Trevor Rossy Basophils/100 WBC (Bld) 0.3 % Normal 0.2-2.0 [facility] Comment on above: Performed By: #### C BC #### [facility] [address] [place], [place] [id number] Trevor Rossy EO # 0.0 103/ul Normal 0.0-0.7 [facility] Comment on above: Performed By: #### C BC #### [facility] [address] [place], [place] [id number] Trevor Rossy Eosinophils/100 WBC (Bld) 0.2 % Critically low 0.9-7.0 [facility] Comment on above: Performed By: #### C BC #### [facility] [address] [place] [address] Trevor Blair Erythrocyte distribution width (RBC) [Ratio] 13.6 % Normal 11.0-15.0 [facility] Comment on above: Performed By: #### C BC #### [facility] [address] [place] [address] Trevor Rossy Hematocrit (Bld) [Volume fraction] 45.5 % Normal 42.0-54.0 [facility] Comment on above: Performed By: #### C BC #### [facility] [address] [place] [address] Trevorgareth Blair Hemoglobin (Bld) [Mass/Vol] 15.1 g/dL Normal 14.0-18.0 [facility] Comment on above: Performed By: #### C BC #### [facility] [address] [place] [address] Trevorgareth Blair IG # 0.03 10e3/ul Normal 0.00-0.03 [facility] Comment on above: Performed By: #### C BC #### [facility] Laboratory [address] [place] [address] Trevor Blair IG % 0.3 % Normal 0.0-0.5 [facility] Comment on above: Performed By: #### C BC #### [facility] [address] [place] [address] Trevor Rossy LYMPH # 1.4 103/ul Normal 1.2-3.8 [facility] Comment on above: Performed By: #### C BC #### [facility] [address] [place] [address] Trevor Blair Lymphocytes/100 WBC (Bld) 11.6 % Critically low 20.5-60.0 [facility] Comment on above: Performed By: #### C BC #### [facility] [address] [place] [address] Trevor Blair MANUAL DIFF REQ NO Normal [facility] Comment on above: Performed By: #### C BC #### [facility] [address] [place], [place] [address] Trevor Blair MCH (RBC) [Entitic mass] 28.4 pg Normal 25.9-34.0 [facility] Comment on above: Performed By: #### C BC #### [facility] [address] [place] [id number] Trevor Blair MCHC (RBC) [Mass/Vol] 33.2 g/dL Normal 29.9-35.2 [facility] Comment on above: Performed By: #### C BC #### [facility] [address] [place] [id number] Trevorgareth Blair MCV (RBC) [Entitic vol] 85.7 fL Normal 80.0-94.0 [facility] Comment on above: Performed By: #### C BC #### [facility] [address] [place] [address] Trevor Blair MONO # 0.4 103/ul Normal 0.3-0.8 [facility] Comment on above: Performed By: #### C BC #### [facility] [address] [place], [place] [id number] Trevor Blair Monocytes/100 WBC (Bld) 3.7 % Normal 1.7-12.0 [facility] Comment on above: Performed By: #### C BC #### [facility] [address] [place], [place] [id number] Trevor Blair NEUT # 10.0 103/ul Critically high 1.4-6.5 [facility] Comment on above: Performed By: #### C BC #### [facility] [address] [place], [place] [id number] Trevor Blair Neutrophils/100 WBC (Bld) 83.9 % Critically high 43.0-75.0 [facility] Comment on above: Performed By: #### C BC #### [facility] [address] [place], [place] [id number] Trevor Rossy Platelet mean volume (Bld) [Entitic vol] 9.4 fL Critically low 9.5-13.5 [facility] Comment on above: Performed By: #### C BC #### [facility] [address] [place], [place] [address] Trevor Blair PLT 312 103/ul Normal 150-450 [facility] Comment on above: Performed By: #### C BC #### [facility] [address] [place], [place] [address] Trevor Blair RBC 5.31 106/ul Normal 4.70-6.10 [facility] Comment on above: Performed By: #### C BC #### [facility] [address] [place], [place] [address] Trevor Blair WBC 11.9 103/ul Critically high 4.0-11.0 [facility] Comment on above: Performed By: #### C BC #### [facility] [address] [place], [place] [address] ABD/PELV W CONon 04-07-20 CT ABD/PELV W CON EXAMINATION: CT ABD/PELV W CON HISTORY: GENERALIZED ABDOMINAL PAIN , lump over right lower quadrant COMPARISON: CT abdomen and pelvis 05/18/2019 TECHNIQUE: CT images were created with 100 mL Omnipaque 300 IV contrast. Axial, Coronal, and Sagittal images. Dose reduction techniques were achieved by using automated exposure control and/or adjustment of mA and/or kV according to patient size and/or use of iterative reconstruction technique. FINDINGS: LUNG BASES: No visible pulmonary or pleural disease. LIVER: No enlargement, atrophy, abnormal density, or significant focal lesion. BILIARY: No visible dilatation or calcification. PANCREAS: No lesion, fluid collection, ductal dilatation, or atrophy. SPLEEN: No enlargement or focal lesion. ADRENALS: No mass or enlargement. KIDNEYS: No mass, obstruction, or calcification. BOWEL/MESENTERY: Fluid-filled loops of proximal and mid small bowel, distended up to 4.0 cm, along with mesenteric fat enter a right paraumbilical hernia, with small bowel distal to the hernia normal in caliber. AORTA/VASCULAR: No aneurysm or dissection. RETROPERITONEUM: No mass or adenopathy. LYMPH NODES: No adenopathy. URINARY BLADDER: No visible focal wall thickening, lesion, or calculus. PELVIC ORGANS: No visible mass. Pelvic organs appropriate for patient age. ABDOMINAL WALL: Right paraumbilical ventral hernia, 12 x 10 x 7 cm containing loops of small bowel and mesenteric fat resulting in partial obstruction of the small bowel; no strangulation. 2 separate small left paraumbilical ventral hernia containing fat; 1 contains a trace amount of fluid. BONES: No bony lesion or fracture. OTHER: Negative. IMPRESSION: 1. Bowel obstruction, suspected to be partial obstruction, due to herniation of small bowel and mesentery into a large right paraumbilical hernia sac. This hernia and herniated small bowel are also seen on the prior study. 2. There are 2 additional fat-containing periumbilical hernias, left of midline; not significantly changed. Electronically authenticated by: GORAN TOM Date: 2020-04-07 15:29 Normal [facility] LIPASEon 04-07-2020 Lipase [Catalytic activity/Vol] 82.0 U/L Normal 23.0-300.0 [facility] Comment on above: Performed By: #### C AMINTA ZULUAGA AMY #### [facility] [address] [place] [address] Trevor Blair PROF 14(COMP METB)on 020 Albumin [Mass/Vol] 4.0 g/dL Normal 3.5-5.0 [facility] Comment on above: Performed By: #### C AMINTA ZULUAGA AMY #### [facility] [address] [place] [address] Trevor Blair Albumin/Globulin [Mass ratio] 1.0 {ratio} Normal [facility] Comment on above: Performed By: #### C AMINTA ZULUAGA AMY #### [facility] [address] [place] [address] Trevor Rossy ALP [Catalytic activity/Vol] 87 U/L Normal 38-126 [facility] Comment on above: Performed By: #### C AMINTA ZULUAGA AMY #### [facility] [address] [place] [address] Trevorgareth Blair ALT [Catalytic activity/Vol] 25 U/L Normal 21-72 [facility] Comment on above: Performed By: #### C AMINTA ZULUAGA AMY #### [facility] [address] [place] [address] Trevor Rossy Anion gap [Moles/Vol] 12.4 mmol/L Normal [facility] Comment on above: Performed By: #### C AMINTA ZULUAGA AMY #### [facility] [address] [place] [address] Trevor Rossy AST [Catalytic activity/Vol] 14 U/L Critically low 17-59 [facility] Comment on above: Performed By: #### C AMINTA ZULUAGA AMY #### [facility] [address] [place] [address] Trevor Rossy Bilirubin [Mass/Vol] 0.7 mg/dL Normal 0.2-1.3 [facility] Comment on above: Performed By: #### C AMINTA ZULUAGA AMY #### [facility] [address] [place] [address] Trevor Rossy Calcium [Mass/Vol] 9.8 mg/dL Normal 8.4-10.[address] [facility] Comment on above: Performed By: #### C AMINTA ZULUAGA CARLITOS #### [facility] [address] [place] [address] Trevor Rossy Chloride [Moles/Vol] 100 mmol/L Normal 98-107 [facility] Comment on above: Performed By: #### C AMINTA ZULUAGA AMY #### [facility] [address] [place] [address] Trevor Rossy CO2 [Moles/Vol] 26.7 mmol/L Normal 22.0-30.0 [facility] Comment on above: Performed By: #### C AMINTA ZULUAGA AMY #### [facility] [address] [place] [address] Trevor Rossy Creatinine [Mass/Vol] 0.82 mg/dL Normal 0.66-1.25 [facility] Comment on above: Performed By: #### C AMINTA ZULUAGA CARLITOS #### [facility] [address] [place] [address] Trevor Rossy EGFR-AF MACEDONIAN >60 Normal >=60 [facility] Comment on above: Performed By: #### C AMINTA ZULUAGA CARLITOS #### [facility] [address] [place] [address] Trevor Rossy EGFR-NON AF MACEDONIAN >60 Normal >=60 [facility] Comment on above: Performed By: #### C AMINTA ZULUAGA AMY #### [facility] [address] [place] [address] Trevor Rossy Globulin (S) [Mass/Vol] 4.1 g/dL Normal [facility] Comment on above: Performed By: #### C AMINTA ZULUAGA CARLITOS #### [facility] [address] [place] [address] Trevor Rossy Glucose [Mass/Vol] 111 mg/dL Critically high 74-106 T [facility] Comment on above: Performed By: #### C AMINTA ZULUAGA AMY #### [facility] [address] [place] [address] Trevor Rossy Potassium [Moles/Vol] 4.1 mmol/L Normal 3.4-5.0 [facility] Comment on above: Performed By: #### C AMINTA ZULUAGA AMY #### [facility] [address] [place] [address] Trevor Rossy Protein [Mass/Vol] 8.1 g/dL Normal 6.1-8.2 [facility] Comment on above: Performed By: #### C AMINTA ZULUAGA AMY #### [facility] [address] [place] [address] Trevor Rossy Sodium [Moles/Vol] 135 mmol/L Critically low 137-145 [facility] Comment on above: Performed By: #### C AMINTA ZULUAGA CARLITOS #### [facility] [address] [place] [address] Trevor Rossy Urea nitrogen [Mass/Vol] 10.0 mg/dL Normal 9.0-20.0 [facility] Comment on above: Performed By: #### C AMINTA ZULUAGA AMY #### [facility] [address] [place] [address] Trevor Rossy Urea nitrogen/Creatinine [Mass ratio] 12.2 mg/mg Normal [facility] Comment on above: Performed By: #### C AMINTA ZULUAGA CARLITOS #### [facility] [address] [place] [address] Trevorgareth Blair PROTIMEon 04-07-2020 INR Coag (PPP) [Relative time] 0.97 {INR} Normal [facility] Comment on above: Performed By: #### P T, PTT #### [facility] [address] [place] [address] Trevor Rossy INR GUIDELINES SEE BELOW Normal [facility] Comment on above: Result Comment: MARIAH RED INR: 2.0 - 3.0 CONDITIONS NOT LISTED BELOW 2.5 - 3.5 FOR PROSTHETIC HEART VALVE REPLACEMENT 2.5 - 3.5 RECURRENT THROMBOSIS Performed By: #### P T, PTT #### [facility] [address] [place], [place] [id number] Trevor Rossy PT Coag (PPP) [Time] 10.3 s Normal 9.0-11.6 [facility] Comment on above: Performed By: #### P T, PTT #### [facility] [address] [place] [address] Trevor Rossy PT NORMAL PLEASE NOTE: NORMAL RANGE CHANGE 02-19-2014 DUE TO REAGENT LOT CHANGE Normal [facility] Comment on above: Performed By: #### P T, PTT #### [facility] [address] [place], [place] [id number] Trevor Rossy PTTon 04-07-2020 aPTT Coag (Bld) [Time] 27.6 s Normal 22.3-36.2 [facility] Comment on above: Performed By: #### P T, PTT #### [facility] [address] [place] [address] Trevor Rossy PTT NORMAL PLEASE NOTE: NORMAL RANGE CHANGE 04-28-2015 DUE TO REAGENT LOT CHANGE Normal [facility] Comment on above: Performed By: #### P T, PTT #### [facility] [address] [place], [place] [id number] Trevor Rossy BASIC METABOLIC PANELon 12- Calcium [Mass/Vol] 9.0 mg/dL Normal 8.6-10.3 [facility] Comment on above: Order Comment: No: D o not add to previous draw Performed By: #### 0 0071 #### [facility] [address] [place] [address], [place] Chloride [Moles/Vol] 101 mmol/L Normal 98-107 [facility] Comment on above: Order Comment: No: D o not add to previous draw Performed By: #### 0 0071 #### [facility] [address] [place] [address], [place] CO2 [Moles/Vol] 26 mmol/L Normal 21-31 [facility] Comment on above: Order Comment: No: D o not add to previous draw Performed By: #### 0 0071 #### [facility] [address] [place] [address], [place] Creatinine [Mass/Vol] 0.67 mg/dL Low 0.70-1.30 [facility] Comment on above: Order Comment: No: D o not add to previous draw Performed By: #### 0 0071 #### [facility] [address] [place] [address], [place] GFR/1.73 sq M predicted among blacks MDRD (S/P/Bld) [Vol rate/Area] mL/min/{1.73_m2} Normal >60 [facility] Comment on above: Order Comment: No: D o not add to previous draw Performed By: #### 0 0071 #### [facility] [address] [place] [address], [place] GFR/1.73 sq M predicted among non-blacks MDRD (S/P/Bld) [Vol rate/Area] mL/min/{1.73_m2} Normal >60 [facility] Comment on above: Order Comment: No: D o not add to previous draw Performed By: #### 0 0071 #### [facility] [address] [place] [address], [place] Glucose [Mass/Vol] 100 mg/dL Normal 70-100 The [facility] Comment on above: Order Comment: No: D o not add to previous draw Performed By: #### 0 0071 #### [facility] [address] [place] [address], [place] Potassium [Moles/Vol] 3.7 mmol/L Normal 3.5-5.1 [facility] Comment on above: Order Comment: No: D o not add to previous draw Performed By: #### 0 0071 #### [facility] [address] [place] [address], [place] Sodium [Moles/Vol] 134 mmol/L Low 136-145 [facility] Comment on above: Order Comment: No: D o not add to previous draw Performed By: #### 0 0071 #### [facility] [address] [place] [address], [place] Urea nitrogen [Mass/Vol] 8 mg/dL Normal 7-25 [facility] Comment on above: Order Comment: No: D o not add to previous draw Performed By: #### 0 0071 #### [facility] [address] [place] [address], [place] CBC COMPLETE BLOOD COUNTon 07-23-2018 Erythrocyte distribution width (RBC) [Ratio] 13.2 % Normal 11.5-15.0 [facility] Comment on above: Order Comment: No: D o not add to previous draw Performed By: #### 0 0071, [id number], [id number] #### [facility] [address] [place] [address], [place] Hematocrit (Bld) [Volume fraction] 41.1 % Normal 39.0-50.0 [facility] Comment on above: Order Comment: No: D o not add to previous draw Performed By: #### 0 0071, [id number], [id number] #### [facility] [address] [place] [address], [place] Hemoglobin (Bld) [Mass/Vol] 13.3 g/dL Normal 13.0-17.0 [facility] Comment on above: Order Comment: No: D o not add to previous draw Performed By: #### 0 0071, 12350, [id number] #### [facility] [address] [place] [address], [facility] MCH (RBC) [Entitic mass] 28.0 pg Normal 27.0-33.0 [facility] Comment on above: Order Comment: No: D o not add to previous draw Performed By: #### 0 0071, 22072, 77885 #### [facility] [address] [place] [address], [facility] MCHC (RBC) [Mass/Vol] 32.4 g/dL Normal 32.0-35.0 [facility] Comment on above: Order Comment: No: D o not add to previous draw Performed By: #### 0 0071, , [id number] #### [facility] [address] [place] [address], [facility] MCV (RBC) [Entitic vol] 86.5 fL Normal 82.0-98.0 [facility] Comment on above: Order Comment: No: D o not add to previous draw Performed By: #### 0 0071, 30862, 89245 #### [facility] [address] [address], [facility] Nucleated RBC/100 WBC (Bld) [Ratio] 0 % Normal 0-0 [facility] Comment on above: Order Comment: No: D o not add to previous draw Performed By: #### 0 0071, 67161, 46741 #### [facility] [address] [facility] [place] [address], [facility] PLAT CNT 263 10*3/uL Normal 150-400 The [facility] Comment on above: Order Comment: No: D o not add to previous draw Performed By: #### 0 0071, 81212, 60883 #### [facility] [address] [facility] [place] [address], [facility] RBC (Bld) [#/Vol] 4.75 10*6/uL Normal 4.20-5.70 The [facility] Comment on above: Order Comment: No: D o not add to previous draw Performed By: #### 0 0071, 18218, 24887 #### [facility] [address] [place] [address], [facility] WBC (Bld) [#/Vol] 8.78 10*3/uL Normal 4.00-10.60 [facility] Comment on above: Order Comment: No: D o not add to previous draw Performed By: #### 0 0071, 60998, 58714 #### [facility] [address] Operative Reporton [id number] 9 Operative Report MR#: [id number] I [facility] Pt. Name: Tiffany Rush Room #: [id number] Discharge Date: Birthdate: 1975 OPERATIVE REPORT DATE OF SURGERY: 05/20/2019 SURGEON: Tien Bhat M.D. PREOPERATIVE DIAGNOSIS: Bowel obstruction secondary to ventral hernia. OPERATION PERFORMED: 1. Exploratory laparotomy. 2. Removal of mesh. 3. Lysis of adhesion. 4. Reduction of hernia. 5. Right component separation. 5. Ventral hernia repair, placement of PRISCILA drain, POSTOPERATIVE DIAGNOSIS: Bowel obstruction secondary to incarcerated ventral hernia. CLINICAL SCIENCE CONSULTANT: Krunal Bolton M.D. ANESTHESIA: General anesthesia. SPECIMEN: Mesh. EBL: 100 mL. INDICATION: The patient is a 43-year-old male with 4 prior history of ventral hernia repairs. The patient is admitted with signs of bowel obstruction secondary to incarcerated hernia. The patient was offered exploratory laparotomy, ventral hernia repair, possible bowel resection. Consent was obtained. DESCRIPTION OF PROCEDURE: The patient was brought into the operating room. He was placed in supine position. Cardiopulmonary monitors were connected. General anesthesia with endotracheal intubation was done. Klein catheter as well as orogastric tube were placed. Abdomen was prepped and draped in usual sterile fashion. A midline incision was made with a knife. Dissection was carried down with electro Bovie. Around the umbilical region, the fascia was incised and the previous mesh was identified. We extended the incision superiorly and inferiorly. At the inferior portion of the midline incision, the hernia defect was identified. The peritoneal fascia was incised and access to the abdominal cavity was gained. The patient has 2 hernia defects, right and left to midline, containing small bowel to the right side and colon to the left side. Lysis of adhesion greater than 30 minutes was done using a combination of electro Bovie and Metzenbaum scissor. I turned my attention to the right side of the midline incision where small bowel was herniated and the small bowel was freed from the hernia defect and looked healthy. After that, my attention was to the left side of the midline and doing lysis of adhesion, and portion of the colon with the mesocolon were herniated through the fascia defect that required incising the fascia at the midline transversely and the colon was reduced with no evidence of ischemia. The fascial defect is 15 cm long, 12 cm wide. The fascia is unable to be approximated without component separation. I raised a subcutaneous flap to the right side of the midline and to reach external oblique fascia, external operative fascia was opened with electrocautery longitudinally, from rib cage down to inguinal ligament. I used the 2 separate subcutaneous tunneling to preserve perforators. component separation was accomplished. After that, a small fascia defect paramedian to the incision was closed with 1-0 PDS. The old mesh was removed. After gaining enough length, the fascia was reapproximated using 0 PDS in a [id number] fashion. A 10-Kazakh PRISCILA drain was placed to the right subcutaneous flap and exited through the left abdomen. A 40 mL of Marcaine was infiltrated and transverse plane. The subcutaneous tissue was irrigated and the skin was closed with sterile dion followed by sterile dressings. The patient tolerated the procedure well with no complications. He was allowed to awaken from anesthesia and transferred to the recovery room. A suitable sized abdominal binder was placed. All instrument counts correct x2. Dr. Bhat was present, scrubbed, and did the critical portion of procedure. Electronically Signed by: Tien Bhat M.D. 06/06/2019 04:38 P Tien Bhat M.D. I was present for the entire procedure. Date Dict: 05/20/2019/10:30 Joy/Krunal Bolton MD Date Trans: 05/21/2019 04:08 Karel/dexter [id number] cc: Norberto Garcia M.D. [address] [place] [address] Rad Merritt M.D. E R Physican...do Not Send [address] [facility] [place] [address] Normal [facility] BASIC METABOLIC PANELon 05-04 Calcium [Mass/Vol] 8.3 mg/dL Low 8.6-10.3 [facility] Comment on above: Order Comment: No: D o not add to previous draw Patient in surgery Performed By: #### 0 0071 #### [facility] [address] [place] [address], [facility] Chloride [Moles/Vol] 101 mmol/L Normal 98-107 [facility] Comment on above: Order Comment: No: D o not add to previous draw Patient in surgery Performed By: #### 0 0071 #### [facility] [address] [place] [address], [place] CO2 [Moles/Vol] 27 mmol/L Normal 21-31 [facility] Comment on above: Order Comment: No: D o not add to previous draw Patient in surgery Performed By: #### 0 0071 #### [facility] [address] [place] [address], [place] Creatinine [Mass/Vol] 0.92 mg/dL Normal 0.70-1.30 [facility] Comment on above: Order Comment: No: D o not add to previous draw Patient in surgery Performed By: #### 0 0071 #### [facility] [address] [place] [address], [place] GFR/1.73 sq M predicted among blacks MDRD (S/P/Bld) [Vol rate/Area] mL/min/{1.73_m2} Normal >60 [facility] Comment on above: Order Comment: No: D o not add to previous draw Patient in surgery Performed By: #### 0 0071 #### [facility] [address] [place] [address], [facility] GFR/1.73 sq M predicted among non-blacks MDRD (S/P/Bld) [Vol rate/Area] mL/min/{1.73_m2} Normal >60 [facility] Comment on above: Order Comment: No: D o not add to previous draw Patient in surgery Performed By: #### 0 0071 #### [facility] [address] [place] [address], [facility] Glucose [Mass/Vol] 139 mg/dL High 70-100 [facility] Comment on above: Order Comment: No: D o not add to previous draw Patient in surgery Performed By: #### 0 0071 #### [facility] [address] [place] [address], [facility] Potassium [Moles/Vol] 3.4 mmol/L Low 3.5-5.1 [facility] Comment on above: Order Comment: No: D o not add to previous draw Patient in surgery Performed By: #### 0 0071 #### [facility] [address] [place] [address], [facility] Sodium [Moles/Vol] 135 mmol/L Low 136-145 [facility] Comment on above: Order Comment: No: D o not add to previous draw Patient in surgery Performed By: #### 0 0071 #### [facility] [address] [place] [address], [place] Urea nitrogen [Mass/Vol] 7 mg/dL Normal 7-25 [facility] Comment on above: Order Comment: No: D o not add to previous draw Patient in surgery Performed By: #### 0 0071 #### [facility] [facility] [address] [place], [place] [id number] [place] [address] CBC COMPLETE BLOOD COUNTon 07-21-2018 Erythrocyte distribution width (RBC) [Ratio] 13.0 % Normal 11.5-15.0 [facility] Comment on above: Order Comment: No: D o not add to previous draw Performed By: #### 0 0071, 30636, 24480 #### [facility] [address] [place] [address], [facility] Hematocrit (Bld) [Volume fraction] 41.6 % Normal 39.0-50.0 [facility] Comment on above: Order Comment: No: D o not add to previous draw Performed By: #### 0 0071, 97659, 00400 #### [facility] [address] [place] [address], [facility] Hemoglobin (Bld) [Mass/Vol] 13.3 g/dL Normal 13.0-17.0 [facility] Comment on above: Order Comment: No: D o not add to previous draw Performed By: #### 0 0071, 32065, 00698 #### [facility] [address] [place] [address], [facility] MCH (RBC) [Entitic mass] 27.9 pg Normal 27.0-33.0 [facility] Comment on above: Order Comment: No: D o not add to previous draw Performed By: #### 0 0071, 73105, 09840 #### [facility] [address] [place] [address], [place] MCHC (RBC) [Mass/Vol] 32.0 g/dL Normal 32.0-35.0 [facility] Comment on above: Order Comment: No: D o not add to previous draw Performed By: #### 0 0071, 73105, 65860 #### [facility] [address] [place] [address], [place] MCV (RBC) [Entitic vol] 87.4 fL Normal 82.0-98.0 [facility] Comment on above: Order Comment: No: D o not add to previous draw Performed By: #### 0 0071, 80394, 54515 #### [facility] [address] [place] [address], [place] Nucleated RBC/100 WBC (Bld) [Ratio] 0 % Normal 0-0 [facility] Comment on above: Order Comment: No: D o not add to previous draw Performed By: #### 0 0071, 97976, 82187 #### [facility] [address] [place] [address], [place] PLAT CNT 245 10*3/uL Normal 150-400 [facility] Comment on above: Order Comment: No: D o not add to previous draw Performed By: #### 0 0071, 21307, 91757 #### [facility] [address] [place] [address], [facility] RBC (Bld) [#/Vol] 4.76 10*6/uL Normal 4.20-5.70 [facility] Comment on above: Order Comment: No: D o not add to previous draw Performed By: #### 0 0071, 75725, 12219 #### [facility] [address] [place] [address], [place] WBC (Bld) [#/Vol] 11.74 10*3/uL High 4.00-10.60 [facility] Comment on above: Order Comment: No: D o not add to previous draw Performed By: #### 0 0071, 48600, 95371 #### [facility] [address] [place] [address], [place] POC GLUCOSE LABon 05-20-2019 Glucose [Mass/Vol] 97 mg/dL Normal 70-100 [facility] Comment on above: Performed By: #### 0 0071, 92160, 10995 #### [facility] [address] [place] [address], [place] PROTHROMBIN TIMEon 9 INR Coag (PPP) [Relative time] 1.16 {INR} Normal 0.91-1.16 [facility] Comment on above: Order Comment: No: D o not add to previous draw Result Comment: ACCC P RECOMMENDED INR FOR WARFARIN THERAPY ------ ------- CONDITION INR PROPHYLAXIS OF VENOUS THROMBOSIS 2-3 (HIGH-RISK SURGERY) TREATMENT OF VENOUS THROMBOSIS 2-3 TREATMENT OF PULMONARY EMBOLISM 2-3 PREVENTION OF SYSTEMIC EMBOLISM: 2-3 ACUTE MYOCARDIAL INFARCTION TISSUE HEART VALVES VALVULAR HEART DISEASE ATRIAL FIBRILLATION RECURRENT SYSTEMIC EMBOLISM MECHANICAL HEART VALVE 2.5-3.5 FROM: ORAL ANTICOAGULANTS. MECHANISM OF ACTION, CLINICAL EFFECTIVENESS, AND OPTIMAL THERAPEUTIC RANGE. CHEST 1995;108:231S-246S. Performed By: #### 0 0071, 69442, 34109 #### [facility] [address] [facility]. [address] PT Coag (PPP) [Time] 14.9 s High 12.3-14.8 [facility] Comment on above: Order Comment: No: D o not add to previous draw Result Comment: ALL RESULTS MUST BE INTERPRETED WITH RESPECT TO BLOOD DRAWING ARTIFACT OR DILUTION ERROR OF ANTICOAGULANT AT THE TIME OF SAMPLING. Performed By: #### 0 0071, 53614, 18726 #### [facility] [address] [facility]. [address] TYPE AND CROSSMATCHon 2018 ABO INTERPRETATION O Normal [facility] Comment on above: Performed By: #### 0 0071, 19207, 65914 #### [facility] [address] [place] [address], [facility] RH INTERPRETATION Positive Normal [facility] Comment on above: Performed By: #### 0 0071, 83516, 50474 #### [facility] [address] [place] [address], [facility] APTTon 05-18-2019 aPTT Coag (Bld) [Time] 27.6 s Normal 25.0-35.0 [facility] Comment on above: Order Comment: No: D o not add to previous draw Result Comment: ALL RESULTS MUST BE INTERPRETED WITH RESPECT TO BLOOD DRAWING ARTIFACT OR DILUTION ERROR OF ANTICOAGULANT AT THE TIME OF SAMPLING. THE APTT SHOULD NOT BE USED TO MONITOR UNFRACTIONATED HEPARIN THERAPY, THIS LABORATORY NO LONGER HAS AN ESTABLISHED THERAPEUTIC RANGE BASED ON THE APTT. IT IS RECOMMENDED THAT THE [facility] - HEPARIN ASSAY (ANTI-XA ACTIVITY) BE USED FOR THIS PURPOSE. Performed By: #### 0 0071, 52264, 30597 #### [facility] [address] [facility] [address] BASIC METABOLIC PANELon 05-04 Calcium [Mass/Vol] 8.4 mg/dL Low 8.6-10.3 [facility] Comment on above: Order Comment: No: D o not add to previous draw Performed By: #### 0 0071, 08233, 48878 #### [facility] [address] [facility] [address], [facility] Chloride [Moles/Vol] 103 mmol/L Normal 98-107 [facility] Comment on above: Order Comment: No: D o not add to previous draw Performed By: #### 0 0071, 58984, 25764 #### [facility] [address] [facility] [place] [address], [facility] CO2 [Moles/Vol] 30 mmol/L Normal 21-31 [facility] Comment on above: Order Comment: No: D o not add to previous draw Performed By: #### 0 0071, 90374, 53724 #### [facility] [address] [place] [address], [place] Creatinine [Mass/Vol] 0.86 mg/dL Normal 0.70-1.30 [facility] Comment on above: Order Comment: No: D o not add to previous draw Performed By: #### 0 0071, 45917, 55671 #### [facility] [address] [place] [address], [place] GFR/1.73 sq M predicted among blacks MDRD (S/P/Bld) [Vol rate/Area] mL/min/{1.73_m2} Normal >60 [facility] Comment on above: Order Comment: No: D o not add to previous draw Performed By: #### 0 0071, , 43469 #### [facility] [address] [place] [address], [place] GFR/1.73 sq M predicted among non-blacks MDRD (S/P/Bld) [Vol rate/Area] mL/min/{1.73_m2} Normal >60 [facility] Comment on above: Order Comment: No: D o not add to previous draw Performed By: #### 0 0071, 18357, 92082 #### [facility] [address] [place] [address], [place] Glucose [Mass/Vol] 102 mg/dL High 70-100 [facility] Comment on above: Order Comment: No: D o not add to previous draw Performed By: #### 0 0071, 24675, 59897 #### [facility] [address] [place] [address], [place] Potassium [Moles/Vol] 3.8 mmol/L Normal 3.5-5.1 [facility] Comment on above: Order Comment: No: D o not add to previous draw Performed By: #### 0 0071, 75529, 48437 #### [facility] [address] [place] [address], [place] Sodium [Moles/Vol] 138 mmol/L Normal 136-145 [facility] Comment on above: Order Comment: No: D o not add to previous draw Performed By: #### 0 0071, 73378, 27652 #### [facility] [address] [place] [address], [facility] Urea nitrogen [Mass/Vol] 6 mg/dL Low 7-25 [facility] Comment on above: Order Comment: No: D o not add to previous draw Performed By: #### 0 0071, 33124, 71319 #### [facility] [address] [place] [address], [facility] CBC COMPLETE BLOOD COUNTon 07-19-2018 Erythrocyte distribution width (RBC) [Ratio] 13.3 % Normal 11.5-15.0 [facility] Comment on above: Order Comment: No: D o not add to previous draw Performed By: #### 0 0071, 81470, 37062 #### [facility] [address] [place] [address], [facility] Hematocrit (Bld) [Volume fraction] 41.1 % Normal 39.0-50.0 [facility] Comment on above: Order Comment: No: D o not add to previous draw Performed By: #### 0 0071, 40189, 64845 #### [facility] [address] [place] [address], [facility] Hemoglobin (Bld) [Mass/Vol] 13.1 g/dL Normal 13.0-17.0 [facility] Comment on above: Order Comment: No: D o not add to previous draw Performed By: #### 0 0071, 90131, 27891 #### [facility] [address] [place] [address], [facility] MCH (RBC) [Entitic mass] 27.9 pg Normal 27.0-33.0 [facility] Comment on above: Order Comment: No: D o not add to previous draw Performed By: #### 0 0071, 69731, 58459 #### [facility] [address] [place] [address], [facility] MCHC (RBC) [Mass/Vol] 31.9 g/dL Low 32.0-35.0 [facility] Comment on above: Order Comment: No: D o not add to previous draw Performed By: #### 0 0071, 45315, 23745 #### [facility] [address] [place] [id number], [facility] MCV (RBC) [Entitic vol] 87.6 fL Normal 82.0-98.0 [facility] Comment on above: Order Comment: No: D o not add to previous draw Performed By: #### 0 0071, 83231, 67824 #### [facility] [address] [place] [address], [facility] Nucleated RBC/100 WBC (Bld) [Ratio] 0 % Normal 0-0 [facility] Comment on above: Order Comment: No: D o not add to previous draw Performed By: #### 0 0071, 38144, 38890 #### [facility] [address] [facility] [place] [address], [facility] PLAT CNT 242 10*3/uL Normal 150-400 [facility] Comment on above: Order Comment: No: D o not add to previous draw Performed By: #### 0 0071, 91724, 32975 #### [facility] [address] [place] [address], [facility] RBC (Bld) [#/Vol] 4.69 10*6/uL Normal 4.20-5.70 [facility] Comment on above: Order Comment: No: D o not add to previous draw Performed By: #### 0 0071, 84784, 19404 #### [facility] [address] [place] [address], [place] WBC (Bld) [#/Vol] 4.90 10*3/uL Normal 4.00-10.60 [facility] Comment on above: Order Comment: No: D o not add to previous draw Performed By: #### 0 0071, 57626, 47556 #### [address] [address], [facility] POC GLUCOSE LABon 05-18-2019 Glucose [Mass/Vol] 89 mg/dL Normal 70-100 [facility] Comment on above: Performed By: #### 0 0071, 17133, 67282 #### [facility] [address] [place] [address], [facility] PORTABLE CHEST 1 VIEWon 05-04 PORTABLE CHEST 1 VIEW [facility] Department of Radiology [address] [place] [id number] Patient Name: TIFFANY RUSH : 1975 Sex: M Age: Race: White Pt. Location: [id number] Patient Status: I Ordered Date: 05/18/2019 9:30:00 AM Completed Date: 05/18/2019 10:13 AM Requesting Provider: SUNITA LOAIZA Attending Provider: TIEN BHAT Report Copy To: Signs & Symptoms: Post NG Tube Placement History: See Comments Comments: Check NG Tube Position Exam: PORTABLE CHEST 1 VIEW PORTABLE CHEST 1 VIEW 05/18/2019 10:13 AM EST Clinical information: Administration of feeding tube. COMPARISON: None FINDINGS: The feeding tube is in the stomach. The heart is mildly enlarged accentuated by AP technique. Mediastinum is unremarkable. The lungs are clear of infiltrates or effusions. IMPRESSION: Satisfactory feeding tube placement. Electronically signed by:Rodríguez Ortega. Transcribed by: [email or web address], User Resident: Electronically Signed by: RODRÍGUEZ ORTEGA @ 05/19/2019 06:29 AM Normal [facility] Comment on above: Order Comment: Check NG Tube Position PROTHROMBIN TIMEon 9 INR Coag (PPP) [Relative time] 1.02 {INR} Normal 0.91-1.16 [facility] Comment on above: Order Comment: No: D o not add to previous draw Result Comment: ACCC P RECOMMENDED INR FOR WARFARIN THERAPY ------ ------- CONDITION INR PROPHYLAXIS OF VENOUS THROMBOSIS 2-3 (HIGH-RISK SURGERY) TREATMENT OF VENOUS THROMBOSIS 2-3 TREATMENT OF PULMONARY EMBOLISM 2-3 PREVENTION OF SYSTEMIC EMBOLISM: 2-3 ACUTE MYOCARDIAL INFARCTION TISSUE HEART VALVES VALVULAR HEART DISEASE ATRIAL FIBRILLATION RECURRENT SYSTEMIC EMBOLISM MECHANICAL HEART VALVE 2.5-3.5 FROM: ORAL ANTICOAGULANTS. MECHANISM OF ACTION, CLINICAL EFFECTIVENESS, AND OPTIMAL THERAPEUTIC RANGE. CHEST 1995;108:231S-246S. Performed By: #### 0 0071, 23216, 84464 #### [facility] [address] [facility]. [address] PT Coag (PPP) [Time] 13.4 s Normal 12.3-14.8 [facility] Comment on above: Order Comment: No: D o not add to previous draw Result Comment: ALL RESULTS MUST BE INTERPRETED WITH RESPECT TO BLOOD DRAWING ARTIFACT OR DILUTION ERROR OF ANTICOAGULANT AT THE TIME OF SAMPLING. Performed By: #### 0 0071, 81900, 01928 #### [facility] [address] [facility] [place] [address], [facility] Encounters Encounter Date Encounter Type Care Provider Facility Start: 06-20-2023 End: 06-20-2023 ambulatory LUISA Jorge CATRINA Not Available Start: 06-13-2023 End: 06-14-2023 ambulatory LUISA Jorge CATRINA Not Available Start: 06-12-2023 End: 06-12-2023 ambulatory LUISA FRITZ Not Available Start: 06-26-2020 End: 06-26-[address] TREMAINE ASENCIO Facility:[facility] Start: 04-08-2020 End: 04-12-2020 Evaluation and management of inpatient TIEN BHAT Facility:[facility] Start: 04-07-2020 End: 04-07-[address] MINESH DE LOS SANTOS Facility:[facility] Start: 01-28-2020 End: 01-28-[address] MINESH DE LOS SANTOS Facility:[facility] Start: 05-18-2019 End: 05-22-2019 Evaluation and management of inpatient TIEN BHAT Facility:[facility] Procedures Date Procedure Procedure Detail Performing Clinician Start: 04-09-2020 SUPPLEMENT ABDOMINAL WALL WITH SYNTH SUB, PERC ENDO APPROACH TIEN BHAT Start: 04-08-2020 ASSISTANCE WITH RESP IRATORY VENTILATION, 24-96 HRS TIEN BHAT Start: 05-20-2019 RELEASE PERITONEUM, OPEN APPROACH TIEN BHAT Start: 05-20-2019 REMOVAL OF SYNTHETIC SUBSTITUTE FROM ABD WALL, OPEN APPROACH TIEN BHAT Start: 05-20-2019 Repair Abdominal Wal l, Open Approach TIEN BHAT Start: 05-20-2019 Antibody screen TIEN BHAT Comment on above: Performed By: #### 0 0071, 10434, 74866 #### [facility] [address] [facility] [place] [address], [facility] Payers Date Payer Category Payer Unknown [id number] 1975 Unknown [id number] 2.16.8 [id number] 1975 Unknown [id number] 2.16.8 [id number] 1975 Unknown [id number] 2.16.84 [id number] 1975 Unknown [id number] 2.16.84 [id number] 1975 Unknown [id number] 2.16.84 [id number] 1975 Unknown [id number] 2.16.84 [id number] 1975 Unknown [id number] 2.16.84 [id number] 1975 Unknown [id number] 2.16.84 [id number] 1960 Unknown [id number] Summary Purpose Family History No Family History Records FoundNo Family History Records FoundNo Family History Records Found Advance Directives No Advanced Directives Records FoundNo Advanced Directives Records FoundNo Advanced Directives Records Found Hospital Course Note MR#: [id number] [facility] Pt. Name: Tiffany Rush Admitted: 05/18/2019 Discharged: 05/22/2019 Date of : 1975 Physician: Tien Bhat M.D. DISCHARGE SUMMARY PRINCIPAL DIAGNOSES: Bowel obstruction secondary of incarcerated ventral hernia. SECONDARY DIAGNOSES: Hypertension, obesity, and recurrent ventral hernia. OPERATION PERFORMED: Exploratory laparotomy, removal of mesh, lysis of adhesions, reduction of hernia, closure of fascial defect, placement of PRISCILA drain, right anterior component separation. SUMMARY OF THE HOSPITAL COURSE: The patient is a 43-year-old male with a history of 4 prior ventral hernia repairs. He was admitted with signs of bowel obstruction secondary to incarcerated hernia. He was offered exploratory laparotomy with ventral hernia repair and possible bowel resection and he was agreeable to this. He had said procedure for the recurrent ventral hernia repair and had no bowel resection. A PRISCILA drain was placed and he had a bile 80 mL (more content not included)... Note MR#: [id number] [facility] Pt. Name: Tiffany Rush Admitted: 04/07/2020 Discharged: 04/12/2020 Date of : 1975 Physician: Tien Bhat M.D. DISCHARGE SUMMARY PRIMARY DIAGNOSIS: Incarcerated ventral hernia. SECONDARY DIAGNOSIS: Obesity. PROCEDURE THIS ADMISSION: Da Ned assisted laparoscopic ventral hernia repair with mesh. CONSULTS: Consults this admission none. HOSPITAL STAY: The patient is a 44-year-old male with a recurrent ventral hernia that was found having incarcerated bowel. He had symptoms of bowel obstruction, which caused him to require admission on the evening of 04/07/2020. The patient continued to have obstructive symptoms and we offered him elective hernia repair on 04/09/2020. This was done without complication and the patient was kept postoperatively for a couple of days while he was advancing his diet slowly. On postop day 2, the patient was on soft diet and was ambulating with pain well controlled. He was passing gas, although (more content not included)... Additional Source Comments (unrecognized sect ion and content) No Status Records FoundNo Status Records FoundNo Status Records Found INFORMATION SOURCE (unrecogn ized section and content) DATE CREATED AUTHOR 05/06/2020 [facility] DATE CREATED AUTHOR AUTHOR'S ORGANIZ ATION 10/05/2020 [facility] DATE CREATED AUTHOR AUTHOR'S ORGANIZ ATION 06/21/2023 [facility] FOR RECORDS PERTAINING TO PATIENTS WHO ARE OR HAVE BEEN ENROLLED IN A CHEMICAL DEPENDENCY/SUBSTANCEABUSE PROGRAM, SOME INFORMATION MAY BE OMITTED. This clinical summary was aggregated from multiple sources. Caution should be exercised in using it in the provision of clinical care. This summary normalizes information from multiple sources, and as a consequence, information in this document may materially change the coding, format and clinical context of patient data. In addition, data may be omitted in some cases. CLINICAL DECISIONS SHOULD BE BASED ON THE PRIMARY CLINICAL RECORDS. [facility] [employer] [facility]. provides no warranty or guarantee of the accuracy or completeness of information in this document.
[2023-10-17 10:46] LABS: Basophils Absolute Auto 0.1 10^3/uL (0.0-0.1); Basophils Percent Auto 1.1 % (0.2-2.0); Eosinophils Absolute Auto 0.1 10^3/uL (0.0-0.7); Eosinophils Percent Auto 1.8 % (0.9-7.0); Hematocrit 41.9 % (42.0-54.0); Hemoglobin 13.9 g/dL (14.0-18.0); Immature Granulocytes Abs Auto 0.03 10^3/uL (0.00-0.03); Immature Granulocytes Pct Auto 0.5 % (0.0-0.5); Lymphocytes Absolute Auto 1.5 10^3/uL (1.2-3.8); Lymphocytes Percent Auto 26.4 % (20.5-60.0); Mean Corpuscular HGB Conc 33.2 g/dL (29.9-35.2); Mean Corpuscular Hemoglobin 28.5 pg (25.9-34.0); Mean Corpuscular Volume 85.9 fL (80.0-94.0); Mean Platelet Volume 9.9 fL (9.5-13.5); Monocytes Absolute Auto 0.3 10^3/uL (0.3-0.8); Monocytes Percent Auto 5.9 % (1.7-12.0); Neutrophils Absolute Auto 3.6 10^3/uL (1.4-6.5); Neutrophils Percent Auto 64.3 % (43.0-75.0); Platelet Count 260 10^3/uL (150-450); Red Blood Count 4.88 10^6/uL (4.70-6.10); Red Cell Distribution Width 13.1 % (11.0-15.0); White Blood Count 5.6 10^3/uL (4.0-11.0)
[2023-10-17 11:35] LABS: Alanine Aminotransferase 69 U/L (16-63); Albumin Globulin Ratio 0.8; Albumin Level 3.2 g/dL (3.4-5.0); Alkaline Phosphatase 134 U/L (46-116); Anion Gap 13.3; Aspartate Amino Transferase 55 U/L (15-37); BUN Creatinine Ratio 9.6; Bilirubin Total 0.6 mg/dL (0.2-1.0); Calcium 9.1 mg/dL (8.5-10.1); Chloride 100 mmol/L (98-107); Chol HDL Ratio 4.5; Cholesterol 181 mg/dL (<=200); Estimated GFR (African America >60 (>=60); Estimated GFR (Non-African Ame >60 (>=60); Globulin 4.2 g/dL; Glucose 254 mg/dL (74-106); HDL Cholesterol 40 mg/dL (40-60); Potassium 4.3 mmol/L (3.5-5.1); Sodium 136 mmol/L (136-145); Total Protein 7.4 g/dL (6.4-8.2); Triglycerides 182 mg/dL (<=150); VLDL CHOLESTEROL 36.4 mg/dL
== END 2023-10-17 10:19 | disposition home or self-care (01) ==
LOC: LAB 10:20
PROVIDERS: PCP Family Medicine
DX: K80.00 Calculus of gallbladder with acute cholecystitis without obstruction (principal); Z98.890 Other specified postprocedural states; R14.0 Abdominal distension (gaseous); R10.84 Generalized abdominal pain; K21.9 Gastro-esophageal reflux disease without esophagitis; Z13.0 Encounter for screening for diseases of the blood and blood-forming organs and certain disorders involving the immune mechanism; Z13.6 Encounter for screening for cardiovascular disorders; Z13.1 Encounter for screening for diabetes mellitus
CPT/HCPCS: 36415; 80053; 80061; 83690; 85025